=== PATIENT | male | born 1960 | race Caucasian/White ===

== ENCOUNTER 2017-06-04 08:32 | Inpatient (IN) | payer OTHER ==
[2017-06-04] VITALS (7 sets, daily range): BP systolic 134–174; BP diastolic 62–80; PULSE 81–101; RESP 16–18; TEMP 98.3; O2SAT 95–99
[~2017-06-04] VITALS: Ht 180.3 cm; Wt 120.0 kg
[~2017-06-04 08:32] MED LIST: CADU10TA PO; HUMALOG SQ; LANTUSP SQ; LISI10TA PO
[2017-06-04] MEDS ORDERED: LANTUS2P SQ (08:47)
[2017-06-04] MEDS ORDERED: HUMALOG SQ (08:47)
[2017-06-04] MEDS ORDERED: AMLO1TAB34 PO (08:47)
[2017-06-04] MEDS ORDERED: LISI10TA PO (08:47)
[2017-06-04] MEDS ORDERED: SODIUM CHLOR 0.9% 1000 ML INJ 1,000 ML IV ONE (08:49)
[2017-06-04] MEDS ORDERED: ONDANSETRON HCL 4 MG/2 ML VIAL IV PUSH ONE ×2 (09:00→11:09)
[2017-06-04] MEDS ORDERED: ceFAZolin 2 GM PREMIX 50 ML IV ONE (09:00)
[2017-06-04] MEDS ORDERED: TETANUS/DIPHTHERIA TOXOID ADULT 0.5 ML VIAL IM ONE (09:00)
[2017-06-04] MEDS ORDERED: HYDROmorphone HCL PF 1 MG/ML VIAL IV PUSH ONE (09:00)
[2017-06-04] MEDS ORDERED: SODIUM CHLORIDE 0.9% FLUSH 10 ML FLUSH IVF PRN (09:00)
[2017-06-04] MEDS ORDERED: ETOMIDATE 20 MG/10 ML VIAL IV PUSH ONE (09:15)
--- NOTE | 2017-06-04 09:20 | PD ---
HPI Chief Complaint: Musculoskeletal Complaint Time Seen by Provider: 08:49 Travel History International Travel<30 days: No Contact w/Intl Traveler<30days: No Traveled to known affect area: No History of Present Illness HPI Patient is a 57 year old male who presents to the ED via [facility] with open ankle fracture. He also has a tongue laceration. He awoke this morning in his home and noticed his ankle then called [facility]. He does not remember any events from last night including how he fell. He also cannot remember where he was in his home when he awoke this morning. He rates his ankle pain as 5/10. He states that he is a type 1 diabetic and has episodes of hypoglycemia but does not recall any syncopal episodes. He denies history of seizures or syncope. He denies illicit drug use or recent alcohol use. He denies any other injuries, headache, dizziness, shortness of breath, abdominal pain, back pain, cough, congestion, or rashes. Last tetanus vaccine greater than 5 years ago. Modifying Factors: None Associated Signs & Symptoms: Syncope, left open ankle fracture Risk Factors: Diabetic PFSH Past Medical History High Cholesterol: Yes Diabetes: Yes (TYPE I) Patient Takes Glucophage: No Diminished Hearing: No Hypertension: Yes Past Surgical History Surgical History: No Previous Surgery Social History Alcohol Use: Yes Tobacco Use: No Substance Use: No Allergies-Medications (Allergen,Severity, Reaction): Coded Allergies: No Known Allergies (Verified Allergy, Mild, 06/04/17) Reported Meds & Prescriptions Reported Meds & Active Scripts Active Reported Humalog Inj (Insulin Human Lispro) 1,000 Unit/10 Ml Vial 30 Units SQ PCHS Max dose at bedtime:( )units; sugars < 70,(0)units; sugars 150-199,(5)units; sugars 200-249,(10)units; sugars 250-299,(15)units; sugars 300-349,(20)units; sugars more than 349,(25)units. Lantus Inj (Insulin Glargine) 1,000 Unit/10 Ml Vial 50 Units SQ HS Amlodipine-Atorvastatin 10-10 Mg Tab 1 Tab PO DAILY Lisinopril-Hctz 10-12.5 Mg Tab 1 Tab PO DAILY Review of Systems Except as stated in HPI: all other systems reviewed are Neg Physical Exam Narrative GENERAL: Well-nourished well-developed middle age white male patient who is obese. Awake. Alert. Oriented 3. In mild distress distress. SKIN: Warm and dry. Dry Blood on chin, hands and legs bilaterally. HEAD: Atraumatic. Normocephalic. EYES: Pupils equal and round. No scleral icterus. No injection or drainage. Extraocular movements intact. ENT: No nasal bleeding or discharge. Mucous membranes pink and moist. Small laceration on left lateral tongue. No acute bleeding NECK: Trachea midline. No JVD. Full ROM. Supple. No midline C-spine tenderness. CARDIOVASCULAR: Regular rate and rhythm. Radial and dorsalis pedis pulses 2+ bilaterally. RESPIRATORY: No accessory muscle use. Clear to auscultation. Breath sounds equal bilaterally. GASTROINTESTINAL: Abdomen soft, non-tender, nondistended. Hepatic and splenic margins not palpable. MUSCULOSKELETAL: Extremities without clubbing, cyanosis, or edema. Open fracture of left medial ankle. Distal tibial exposed. Good dorsal pedis pulses. NEUROLOGICAL: Awake and alert. No obvious cranial nerve deficits. Motor grossly within normal limits. Five out of 5 muscle strength in the arms and legs. Normal speech. PSYCHIATRIC: Appropriate mood and affect; insight and judgment normal. Data Data Last Documented VS Vital Signs Date Time Temp Pulse Resp B/P (MAP) Pulse Ox O2 Delivery O2 Flow Rate FiO2 06/04/17 11:20 81 18 134/62 (86) 98 Room Air 06/04/17 09:20 3.00 Orders Orders Electrocardiogram (06/04/17 08:49) Complete Blood Count With Diff (06/04/17 08:49) Comprehensive Metabolic Panel (06/04/17 08:49) Ckmb (Isoenzyme) Profile (06/04/17 08:49) Troponin I (06/04/17 08:49) Act Partial Throm Time (Ptt) (06/04/17 08:49) Prothrombin Time / Inr (Pt) (06/04/17 08:49) Chest, Single Ap (06/04/17 08:49) Ct Brain W/O Iv Contrast(Rout) (06/04/17 08:49) Ecg Monitoring (06/04/17 08:49) Iv Access Insert/Monitor (06/04/17 08:49) Oximetry (06/04/17 08:49) Sodium Chloride 0.9% Flush (Ns Flush) (06/04/17 09:00) Sodium Chlor 0.9% 1000 Ml Inj (Ns 1000 M (06/04/17 08:49) Hydromorphone Pf Inj (Dilaudid Pf Inj) (06/04/17 09:00) Ondansetron Inj (Zofran Inj) (06/04/17 09:00) Tetanus/Diphtheria Tox Adult (Tetanus/Di (06/04/17 09:00) Cefazolin 2 Gm Premix (Ancef 2 Gm Premix (06/04/17 09:00) Etomidate Inj (Amidate Inj) (06/04/17 09:15) Ankle, Limited (Ap&Lat) (06/04/17 08:49) Ankle, Limited (Ap&Lat) (06/04/17 ) CKMB (06/04/17 08:50) CKMB% (06/04/17 08:50) Alcohol (Ethanol) (06/04/17 08:50) Fiberglass Short Leg Splint Ad (06/04/17 ) Fiberglass Sugartong Sp Ad Sl (06/04/17 ) Admit Order (Ed Use Only) (06/04/17 11:57) Consult Orthopedic (06/04/17 ) Labs Laboratory Tests Test 06/04/17 08:50 06/04/17 11:05 Blood Urea Nitrogen 17 MG/DL Creatinine 1.27 MG/DL Random Glucose 104 MG/DL Total Protein 7.4 GM/DL Albumin 3.0 GM/DL Calcium Level 8.8 MG/DL Alkaline Phosphatase 74 U/L Aspartate Amino Transf (AST/SGOT) 63 U/L Alanine Aminotransferase (ALT/SGPT) 32 U/L Total Bilirubin 0.4 MG/DL Sodium Level 143 MEQ/L Potassium Level 5.7 MEQ/L Chloride Level 113 MEQ/L Carbon Dioxide Level 19.2 MEQ/L Anion Gap 11 MEQ/L Estimat Glomerular Filtration Rate 59 ML/MIN Total Creatine Kinase 313 U/L Creatine Kinase MB 2.2 NG/ML Creatine Kinase MB % 0.7 % Troponin I LESS THAN 0.02 NG/ML Ethyl Alcohol Level LESS THAN 3 MG/DL White Blood Count 17.5 TH/MM3 Red Blood Count 4.74 MIL/MM3 Hemoglobin 14.2 GM/DL Hematocrit 43.4 % Mean Corpuscular Volume 91.6 FL Mean Corpuscular Hemoglobin 30.1 PG Mean Corpuscular Hemoglobin Concent 32.8 % Red Cell Distribution Width 14.3 % Platelet Count 206 TH/MM3 Mean Platelet Volume 10.2 FL Neutrophils (%) (Auto) 90.4 % Lymphocytes (%) (Auto) 4.9 % Monocytes (%) (Auto) 4.5 % Eosinophils (%) (Auto) 0.1 % Basophils (%) (Auto) 0.1 % Neutrophils # (Auto) 15.8 TH/MM3 Lymphocytes # (Auto) 0.8 TH/MM3 Monocytes # (Auto) 0.8 TH/MM3 Eosinophils # (Auto) 0.0 TH/MM3 Basophils # (Auto) 0.0 TH/MM3 CBC Comment DIFF FINAL Differential Comment Prothrombin Time 10.0 SEC Prothromb Time International Ratio 0.9 RATIO Activated Partial Thromboplast Time 21.8 SEC MDM Medical Decision Making Medical Screen Exam Complete: Yes Emergency Medical Condition: Yes Medical Record Reviewed: Yes Interpretation(s) Last [address] 06/04/17848 Signed Impressions: Service Date/Time: May 10:56 - CONCLUSION: 1. No evidence of acute intracranial process, hemorrhage, mass or edema. 2. Mucosal thickening with partial opacification in the left sphenoid sinus. Giuseppe Vargas MD Chest X-Ray 06/04/17848 Signed Impressions: Service Date/Time: May 09:14 - CONCLUSION: No acute cardiopulmonary abnormality is identified. Robin Baptiste MD Ankle X-Ray 06/04/17848 Signed Impressions: Service Date/Time: May 09:11 - CONCLUSION: Severe left ankle fracture/dislocation. Robin Farley MD Ankle X-Ray 06/04/17 0000 Signed Impressions: Service Date/Time: May 09:42 - CONCLUSION: Improved alignment following closed reduction and casting with intact ankle mortise. The distal fibular fracture remains displaced but significantly improved in alignment. Robin Baptiste MD Laboratory Tests Test 06/04/17 08:50 06/04/17 11:05 Albumin 3.0 GM/DL (3.4-5.0) Aspartate Amino Transf (AST/SGOT) 63 U/L (15-37) Potassium Level 5.7 MEQ/L (3.5-5.1) Chloride Level 113 MEQ/L (98-107) Carbon Dioxide Level 19.2 MEQ/L (21.0-32.0) Estimat Glomerular Filtration Rate 59 ML/MIN (>89) Total Creatine Kinase 313 U/L (39-308) Troponin I LESS THAN 0.02 NG/ML White Blood Count 17.5 TH/MM3 (4.0-11.0) Neutrophils (%) (Auto) 90.4 % (16.0-70.0) Lymphocytes (%) (Auto) 4.9 % (9.0-44.0) Neutrophils # (Auto) 15.8 TH/MM3 (1.8-7.7) Lymphocytes # (Auto) 0.8 TH/MM3 (1.0-4.8) Activated Partial Thromboplast Time 21.8 SEC (24.3-30.1) Differential Diagnosis Syncope, open ankle fracture: Vasovagal syncope versus hypoglycemic episode versus intracranial injuries versus metabolic issues versus dehydration Narrative Course Patient has an obvious open ankle fracture and IV Ancef and tetanus was updated. Patient was given Dilaudid and Zofran for pain. X-ray was done showing a fracture dislocation of the ankle. Conscious sedation was done and ankle was reduced. Case was discussed with Dr. Gibson of orthopedics who plans to take the patient to the OR, and by mouth, admitted to medicine. Case is discussed with Dr. Garcia for admission. Procedures Procedure Narrative After the risks and benefits were discussed the following procedure was performed: MODERATE SEDATION: The patient was placed on a telemetry monitor and pulse oximetry. An ambu bag and suction was immediately available at bedside. The patient was monitored by the nurse. Oxygen saturation, heart rate and blood pressure were monitored. Procedural sedation was acheived using 10 mg of etomidate. The patient was observed until awake and alert. Procedural Sedation time in attendance was 15 minutes. Left ankle was reduced with traction countertraction to anatomical position. Diagnosis Primary Impression: Open left ankle fracture Additional Impression: Syncope Admitting Information Admitting Physician Requests: Admit Tamara Booker MD Jun 04, 2017 09:20
[2017-06-04 09:27] LABS: ALT (GPT) 32 U/L (12-78)
--- NOTE | 2017-06-04 09:32 | RADRPT ---
EXAM DATE/TIME: 06/04/2017 09:11 [facility] COMPARISON: No previous studies available for comparison. INDICATIONS : Open fracture with deformity left ankle, fall. MEDICAL HISTORY : Diabetes mellitus type I. SURGICAL HISTORY : None. ENCOUNTER: Initial ACUITY: 1 day PAIN SCORE: 10/10 LOCATION: Left ankle. FINDINGS: There is a severely displaced left ankle fracture/dislocation with greater than one shaft width later al translocation of the hindfoot relative to the tibial plafond and period there is slight bayonet ap position. Oblique distal fibular fracture is displaced by roughly 2 shaft widths. CONCLUSION: Severe left ankle fracture/dislocation. Robin Farley MD on June 04, 2017 at 9:29 Board Certified Radiologist. This report was verified electronically.
[2017-06-04 09:37] LABS: ALKALINE PHOSPHATASE 74 U/L (45-117); ANION GAP 11 MEQ/L (5-15); AST (GOT) 63 U/L (15-37); BICARBONATE 19.2 MEQ/L (21.0-32.0); BLOOD UREA NITROGEN 17 MG/DL (7-18); CHLORIDE 113 MEQ/L (98-107); GLOMERULAR FILTRATION RATE 59 ML/MIN (>89); POTASSIUM 5.7 MEQ/L (3.5-5.1); SODIUM (NA) 143 MEQ/L (136-145); TOTAL BILIRUBIN ADULT 0.4 MG/DL (0.2-1.0)
[2017-06-04 09:38] LABS: CREATINE KINASE 313 U/L (39-308)
[2017-06-04 09:49] LABS: CKMB 2.2 NG/ML (0.5-3.6)
[2017-06-04 10:06] LABS: ALCOHOL LESS THAN 3 MG/DL (0-5)
--- NOTE | 2017-06-04 10:14 | RADRPT ---
EXAM DATE/TIME: 06/04/2017 09:42 [facility] COMPARISON: ANKLE LEFT LIMITED (AP&LAT), June 04, 2017, 9:11. INDICATIONS : Post reduction left ankle MEDICAL HISTORY : Diabetes mellitus type II. SURGICAL HISTORY : None. ENCOUNTER: Subsequent ACUITY: 1 day PAIN SCORE: 2/10 LOCATION: Left Ankle FINDINGS: AP and lateral views of the left ankle following reduction and casting a documents improved alignment with intact ankle mortise. The oblique fracture of the distal radial diaphysis remains displaced by approximately 7 mm. There is soft tissue swelling. There is also likely a minimally displaced fractur e of the posterior malleolus. No radiopaque foreign body is present. CONCLUSION: Improved alignment following closed reduction and casting with intact ankle mortise. The distal fibul ar fracture remains displaced but significantly improved in alignment. Robin Baptiste MD on June 04, 2017 at 10:00 Board Certified Radiologist. This report was verified electronically.
--- NOTE | 2017-06-04 10:15 | RADRPT ---
EXAM DATE/TIME: 06/04/2017 09:14 [facility] COMPARISON: No previous studies available for comparison. INDICATIONS : Evaluate for pneumonia, pneumothorax, communicable diseases. Pre-op open fracture left ankle. MEDICAL HISTORY : Diabetes mellitus type I. SURGICAL HISTORY : None. ENCOUNTER: Initial ACUITY: 1 day PAIN SCORE: 0/10 LOCATION: Bilateral chest FINDINGS: Portable AP view of the chest demonstrates a normal-sized cardiac silhouette. No effusion, consolidat ion, or pneumothorax is visualized. The bones and soft tissues demonstrate no acute abnormality. CONCLUSION: No acute cardiopulmonary abnormality is identified. Robin Baptiste MD on June 04, 2017 at 10:13 Board Certified Radiologist. This report was verified electronically.
[2017-06-04] MEDS ORDERED: NORMOSOL R INJ 1,000 ML IV ONE (11:09)
[2017-06-04] MEDS ORDERED: LIDOCAINE HCL 1% PF 5 ML AMPULE OTHER ONE (11:09)
[2017-06-04] MEDS ORDERED: SUCCINYLCHOLINE CHLORIDE 100 MG/5 ML SYRINGE IV PUSH ONE (11:09)
[2017-06-04] MEDS ORDERED: ceFAZolin INJ 1,000 MG VIAL IV ONE (11:09)
[2017-06-04] MEDS ORDERED: PROPOFOL 200 MG/20 ML AMP IV ONE (11:09)
--- NOTE | 2017-06-04 11:22 | RADRPT ---
EXAM DATE/TIME: 06/04/2017 10:56 [facility] COMPARISON: No previous studies available for comparison. INDICATIONS : Syncope, possible fall RADIATION DOSE: 41.58 CTDIvol (mGy) MEDICAL HISTORY : Hypertension. Diabetes mellitus type 1. SURGICAL HISTORY : None. ENCOUNTER: Initial ACUITY: 1 day PAIN SCALE: 0/10 LOCATION: cranial TECHNIQUE: Multiple contiguous axial images were obtained of the head. Using automated exposure control and adj ustment of the mA and/or kV according to patient size, radiation dose was kept as low as reasonably a chievable to obtain optimal diagnostic quality images. DICOM format image data is available electro nically for review and comparison. FINDINGS: CEREBRUM: The ventricles are normal for age. No evidence of midline shift, mass lesion, hemorrhage or acute in farction. No extra-axial fluid collections are seen. POSTERIOR FOSSA: The cerebellum and brainstem are intact. The 4th ventricle is midline. The cerebellopontine angle i s unremarkable. EXTRACRANIAL: Mucosal thickening with partial opacification is identified in the left sphenoid sinus. The visualize d portion of the orbits is intact. SKULL: The calvaria is intact. No evidence of skull fracture. CONCLUSION: 1. No evidence of acute intracranial process, hemorrhage, mass or edema. 2. Mucosal thickening with partial opacification in the left sphenoid sinus. Giuseppe Vargas MD on June 04, 2017 at 11:19 Board Certified Radiologist. This report was verified electronically.
[2017-06-04 11:26] LABS: AUTOMATED NEUTROPHIL # 15.8 TH/MM3 (1.8-7.7); BASOPHIL % 0.1 % (0.0-2.0); EOSINOPHIL % 0.1 % (0.0-4.0); HEMATOCRIT 43.4 % (39.0-51.0); HEMO FLAGS DIFF FINAL; LYMPH % 4.9 % (9.0-44.0); LYMPHOCYTE # 0.8 TH/MM3 (1.0-4.8); MEAN CELL VOLUME 91.6 FL (80.0-100.0); MEAN CORPUSCULAR HEMOGLOBIN 30.1 PG (27.0-34.0); MEAN CORPUSCULAR HGB CONC 32.8 % (32.0-36.0); MONO % 4.5 % (0.0-8.0); NEUT % 90.4 % (16.0-70.0); PLATELET COUNT 206 TH/MM3 (150-450); RED BLOOD COUNT 4.74 MIL/MM3 (4.50-5.90); RED CELL DISTRIBUTION WIDTH 14.3 % (11.6-17.2); WHITE BLOOD COUNT 17.5 TH/MM3 (4.0-11.0)
[2017-06-04 11:34] LABS: APTT (PATIENT) 21.8 SEC (24.3-30.1); INTERNATIONAL NORMALIZED RATIO 0.9 RATIO
[2017-06-04] MEDS ORDERED: INSU100C SQ (12:27)
[2017-06-04] MEDS ORDERED: [UNRECOGNIZED DRUG - CODE] (12:27)
[2017-06-04] MEDS ORDERED: LISI20TA (12:27)
[2017-06-04] MEDS ORDERED: SODIUM CHLOR 0.9% 1000 ML INJ 1,000 ML IV SCH (13:39)
--- NOTE | 2017-06-04 13:42 | EKG ---
Date Performed: 06/04/2017 Time Performed: 10:32:47 PTAGE: 57 years EKG: Sinus rhythm POSSIBLE LEFT ATRIAL ENLARGEMENT BORDERLINE ECG No significant change from prior electrocardiogram. PREVIOUS TRACING : 02/03/2008 19.40 DOCTOR: Salbador Mcfarlane Interpretating Date/Time 06/04/2017 13:42:10
[2017-06-04] MEDS ORDERED: GLUCAGON 1 MG/ML VIAL OTHER PRN (13:45)
[2017-06-04] MEDS ORDERED: NALOXONE HCL 0.4 MG/ML AMP IV PUSH PRN (13:45)
[2017-06-04] MEDS ORDERED: MORPHINE SULFATE 4 MG/ML INJ IV PUSH PRN ×2 (13:45)
[2017-06-04] MEDS ORDERED: ACETAMINOPHEN 325 MG TAB PO PRN (13:45)
[2017-06-04] MEDS ORDERED: BISACODYL 10 MG SUPP RECTAL PRN (13:45)
[2017-06-04] MEDS ORDERED: MAGNESIUM HYDROXIDE SUSP 30 ML CUP PO PRN (13:45)
[2017-06-04] MEDS ORDERED: SENNOSIDES 8.6 MG TAB PO PRN (13:45)
[2017-06-04] MEDS ORDERED: LACTULOSE SYRUP 20 GM/30 ML CUP PO PRN (13:45)
[2017-06-04] MEDS ORDERED: DEXTROSE 50% IN WATER 50 ML VIAL(D50) IV PUSH PRN (13:45)
[2017-06-04] MEDS ORDERED: ONDANSETRON HCL 4 MG/2 ML VIAL IVP PRN (13:45)
--- NOTE | 2017-06-04 14:04 | HHI.HP ---
[facility] Service [facility] Primary Care Physician Ashleigh Hernandez MD Admission Diagnosis syncope/open ankle fracture Diagnoses: (1) Open left ankle fracture Diagnosis: Principal (2) Hypertension (3) Hyperlipidemia (4) Type 1 diabetes mellitus Chief Complaint: Ankle fracture Travel History International Travel<30 Days: No Contact w/Intl Traveler <30 Da: No Traveled to Known Affected Are: No History of Present Illness The patient is a 57-year-old male who presented to the emergency department via ambulance with an open left ankle fracture. He states that he woke up this morning on the floor and noticed his ankle was injured. He does not remember falling. He last remembers going to bed and states that he felt fine yesterday. His glucose control has been good recently. He does not feel that he was hypoglycemic last night. He denies history of seizures or syncope. He feels a bit nauseous and lightheaded at this time, but did not last night or this morning. No chest pain or dyspnea. Review of Systems Constitutional: DENIES: Fever, Chills, Night Sweats Eyes: DENIES: Blurred vision, Vision loss Ears, nose, mouth, throat: DENIES: Hearing loss Respiratory: DENIES: Cough, Wheezing, Sputum production, Shortness of breath Cardiovascular: DENIES: Chest pain, Palpitations, Dyspnea on Exertion, Lower Extremity Edema Gastrointestinal: DENIES: Abdominal pain, Constipation, Diarrhea, Nausea, Vomiting Genitourinary: DENIES: Urinary frequency, Urinary incontinence, Urgency, Hematuria, Dysuria, Nocturia Musculoskeletal: COMPLAINS OF: Joint pain, DENIES: Muscle aches Integumentary: DENIES: Pruritus, Rash Hematologic/lymphatic: DENIES: Bruising Neurologic: DENIES: Headache Past Family Social History Past Medical History Diabetes mellitus type 1 Hypertension Hyperlipidemia Past Surgical History None Reported Medications Humalog Inj (Insulin Human Lispro) 1,000 Unit/10 Ml Vial 30 Units SQ PCHS Max dose at bedtime:( )units; sugars < 70,(0)units; sugars 150-199,(5)units; sugars 200-249,(10)units; sugars 250-299,(15)units; sugars 300-349,(20)units; sugars more than 349,(25)units. Lantus Inj (Insulin Glargine) 1,000 Unit/10 Ml Vial 50 Units SQ HS Amlodipine-Atorvastatin 10-10 Mg Tab 1 Tab PO DAILY Lisinopril-Hctz 10-12.5 Mg Tab 1 Tab PO DAILY Allergies: Coded Allergies: No Known Allergies (Verified Allergy, Mild, 06/04/17) Family History Denies significant family medical history Social History Occasional alcohol use, none yesterday or today. Occasionally smokes a cigar, most recently a few months ago. Denies illicit drug use. Physical Exam Vital Signs Vital Signs Date Time Temp Pulse Resp B/P (MAP) Pulse Ox O2 Delivery O2 Flow Rate FiO2 06/04/17 12:21 97 16 144/66 (92) 97 Room Air 06/04/17 11:20 81 18 134/62 (86) 98 Room Air 06/04/17 09:20 99 3.00 06/04/17 08:43 96 18 161/72 (101) 97 Room Air 06/04/17 08:39 101 18 161/72 (101) 96 Physical Exam GENERAL: Obese male in no acute distress. HEENT: Normocephalic, atraumatic. Pupils equal, round and reactive. Extraocular movements intact. No scleral icterus. No injection or drainage. Oropharynx is clear. Mucous membranes are moist. CARDIOVASCULAR: Regular rate and rhythm without murmurs, gallops, or rubs. RESPIRATORY: Clear to auscultation. No wheezes, rales, or rhonchi. Breathing is non-labored. GASTROINTESTINAL: Abdomen soft, non-tender, nondistended. EXTREMITIES: No right lower extremity edema. Left lower leg in a splint. PSYCH: Alert and oriented x 3. Laboratory Laboratory Tests Test 06/04/17 08:50 06/04/17 11:05 Blood Urea Nitrogen 17 Creatinine 1.27 Random Glucose 104 Total Protein 7.4 Albumin 3.0 Calcium Level 8.8 Alkaline Phosphatase 74 Aspartate Amino Transf (AST/SGOT) 63 Alanine Aminotransferase (ALT/SGPT) 32 Total Bilirubin 0.4 Sodium Level 143 Potassium Level 5.7 Chloride Level 113 Carbon Dioxide Level 19.2 Anion Gap 11 Estimat Glomerular Filtration Rate 59 Total Creatine Kinase 313 Creatine Kinase MB 2.2 Creatine Kinase MB % 0.7 Troponin I LESS THAN 0.02 Ethyl Alcohol Level LESS THAN 3 White Blood Count 17.5 Red Blood Count 4.74 Hemoglobin 14.2 Hematocrit 43.4 Mean Corpuscular Volume 91.6 Mean Corpuscular Hemoglobin 30.1 Mean Corpuscular Hemoglobin Concent 32.8 Red Cell Distribution Width 14.3 Platelet Count 206 Mean Platelet Volume 10.2 Neutrophils (%) (Auto) 90.4 Lymphocytes (%) (Auto) 4.9 Monocytes (%) (Auto) 4.5 Eosinophils (%) (Auto) 0.1 Basophils (%) (Auto) 0.1 Neutrophils # (Auto) 15.8 Lymphocytes # (Auto) 0.8 Monocytes # (Auto) 0.8 Eosinophils # (Auto) 0.0 Basophils # (Auto) 0.0 CBC Comment DIFF FINAL Differential Comment Prothrombin Time 10.0 Prothromb Time International Ratio 0.9 Activated Partial Thromboplast Time 21.8 Result Diagram: 06/04/17 1105 06/04/1750 Imaging Last Impressions Head CT 06/04/17848 Signed Impressions: Service Date/Time: May 10:56 - CONCLUSION: 1. No evidence of acute intracranial process, hemorrhage, mass or edema. 2. Mucosal thickening with partial opacification in the left sphenoid sinus. Giuseppe Vargas MD Chest X-Ray 06/04/17848 Signed Impressions: Service Date/Time: May 09:14 - CONCLUSION: No acute cardiopulmonary abnormality is identified. Robin Baptiste MD Ankle X-Ray 06/04/17848 Signed Impressions: Service Date/Time: May 09:11 - CONCLUSION: Severe left ankle fracture/dislocation. Robin Farley MD Caprini VTE Risk Assessment Caprini VTE Risk Assessment: Mod/High Risk (score >= 2) VTE Pharm Contraindication: Hemorrhage VTE [facility] Contraindication: LE injury/wound Caprini Risk Assessment Model Point Value = 1 Point Value = 2 Point Value = 3 Point Value = 5 Age 41-60 Minor surgery BMI > 25 kg/m2 Swollen legs Varicose veins or History of unexplained or recurrent spontaneous Oral contraceptives or hormone replacement Sepsis (< 1 month) Serious lung disease, including pneumonia (< 1 month) Abnormal pulmonary function Acute myocardial infarction Congestive heart failure (< 1 month) History of inflammatory bowel disease Medical patient at bed rest Age 61-74 Arthroscopic surgery Major open surgery (> 45 min) Laparoscopic surgery (> 45 min) Malignancy Confined to bed (> 72 hours) Immobilizing plaster cast Central venous access Age >= 75 History of VTE Family history of VTE Factor V Leiden Prothrombin [id number] Lupus anticoagulant Anticardiolipin antibodies Elevated serum homocysteine Heparin-induced thrombocytopenia Other congenital or acquired thrombophilia Stroke (< 1 month) Elective arthroplasty Hip, pelvis, or leg fracture Acute spinal cord injury (< 1 month) Prophylaxis Regimen Total Risk Factor Score Risk Level Prophylaxis Regimen 0-1 Low Early ambulation 2 Moderate Order ONE of the following: *Sequential Compression Device (SCD) *Heparin 5000 units SQ BID 3-4 Higher Order ONE of the following medications: *Heparin 5000 units SQ TID *Enoxaparin/Lovenox 40 mg SQ daily (WT < 150 kg, CrCl > 30 mL/min) *Enoxaparin/Lovenox 30 mg SQ daily (WT < 150 kg, CrCl > 10-29 mL/min) *Enoxaparin/Lovenox 30 mg SQ BID (WT < 150 kg, CrCl > 30 mL/min) AND/OR *Sequential Compression Device (SCD) 5 or more Highest Order ONE of the following medications: *Heparin 5000 units SQ TID (Preferred with Epidurals) *Enoxaparin/Lovenox 40 mg SQ daily (WT < 150 kg, CrCl > 30 mL/min) *Enoxaparin/Lovenox 30 mg SQ daily (WT < 150 kg, CrCl > 10-29 mL/min) *Enoxaparin/Lovenox 30 mg SQ BID (WT < 150 kg, CrCl > 30 mL/min) AND *Sequential Compression Device (SCD) Assessment and Plan Assessment and Plan 1. Open fracture of the left ankle: Orthopedic surgery consult. Continue pain control. 2. Type 1 diabetes mellitus: Monitor Accu-Cheks and cover with sliding scale insulin. Patient is nothing by mouth for surgery. Resume Lantus postoperatively. 3. Hypertension: Continue home medications. 4. Hyperlipidemia: Not currently on statin. 5. DVT prophylaxis: Avoid chemical prophylaxis in anticipation of surgery. Right lower extremity SCD, NEVIN fisher. Mechanical prophylaxis culture indicated on the left lower extremity secondary to injury. Ian Garcia MD Jun 04, 2017 14:03
[2017-06-04] MEDS: ACETAMINOPHEN 325 MG TAB PO PRN ×2 (15:59→20:45)
[2017-06-04] MEDS: INSULIN ASPART SUPPLEMENTAL SCALE SQ SCH ×2 (17:00→19:54)
[2017-06-04] MEDS ORDERED: METOPROLOL TARTRATE 25 MG TAB PO PRN (20:45)
[2017-06-04] MEDS ORDERED: LACTATED RINGER'S 1000 ML IV PRN (20:45)
[2017-06-04] MEDS ORDERED: INSULIN HUMAN REGULAR 1,000 UNITS/10 ML VIAL SQ PRN (20:45)
[2017-06-04] MEDS ORDERED: CHLORHEXIDINE GLUCONATE 2 % 1 PACK (2 CLOTHS) TOPICAL PRN (20:45)
[2017-06-04] MEDS ORDERED: POVIDONE IODINE 5% (ANTISEPSIS KIT) 4 APPLICATIONS EACH NARE PRN (20:45)
[2017-06-04] MEDS ORDERED: SODIUM CHLORID 0.9% 500 ML IV PRN (20:45)
--- NOTE | 2017-06-04 22:32 | PD.CONS ---
cc: Dayton Gibson MD HPI Service Orthopedic Surgeons Consult Requested By ER staff Reason for Consult Open fracture dislocation left ankle Primary Care Physician Ashleigh Hernandez MD Admission Diagnosis syncope/open ankle fracture Diagnoses: (1) Open left ankle fracture Diagnosis: Principal (2) Hypertension (3) Hyperlipidemia (4) Type 1 diabetes mellitus Chief Complaint: Left ankle pain History of Present Illness This 57 old male with a history of type 2 diabetes has no recollection of injuring his left lower extremity. The patient states he woke up and noted a deformity of his ankle with an associated wound. He contacted 911 and was transported to [facility]. X-rays revealed a fracture of the distal fibula with a dislocation of the ankle joint laterally. There was a wound over the medial aspect consistent with open fracture. He was admitted to the medical service with orthopedic consultation requested. Patient denies any other extremity complaints at the present time. The patient denies any history of seizures. He states his blood sugar has been under roughly good control and has no explanation for his loss of consciousness. The patient did undergo a closed reduction by the emergency room staff with splinting. Review of Systems Reviewed and well outlined in the medical record Past Family Social History Past Medical History Diabetes mellitus type 1 Hypertension Hyperlipidemia Past Surgical History None Reported Medications Reported Medications Humalog Inj (Insulin Human Lispro) 1,000 Unit/10 Ml Vial 30 Units SQ PCHS Max dose at bedtime:( )units; sugars < 70,(0)units; sugars 150-199,(5)units; sugars 200-249,(10)units; sugars 250-299,(15)units; sugars 300-349,(20)units; sugars more than 349,(25)units. Lantus Inj (Insulin Glargine) 1,000 Unit/10 Ml Vial 50 Units SQ HS Amlodipine-Atorvastatin 10-10 Mg Tab 1 Tab PO DAILY Lisinopril-Hctz 10-12.5 Mg Tab 1 Tab PO DAILY Allergies: Coded Allergies: No Known Allergies (Verified Allergy, Mild, 06/04/17) Active Ordered Medications Current Medications Medications (Trade) Dose Ordered Sig/Sami Route Start Time Stop Time Status Last Admin (NS Flush) 2 ml UNSCH PRN IVF 06/04/17 09:00 Sodium Chloride 1,000 ml @ 100 mls/hr Q10H IV 06/04/17 13:39 (Tylenol) 650 mg Q4H PRN PO 06/04/17 13:45 (Zofran Inj) 4 mg Q6H PRN IVP 06/04/17 13:45 06/04/17 19:46 (Tylenol) 650 mg Q6H PRN PO 06/04/17 13:45 06/04/17 20:45 (Morphine Inj) 2 mg Q3H PRN IV PUSH 06/04/17 13:45 (Morphine Inj) 4 mg Q3H PRN IV PUSH 06/04/17 13:45 06/04/17 19:42 (Narcan Inj) 0.4 mg UNSCH PRN IV PUSH 06/04/17 13:45 (Milk Of Magnesia Liq) 30 ml Q12H PRN PO 06/04/17 13:45 (Senokot) 17.2 mg Q12H PRN PO 06/04/17 13:45 (Dulcolax Supp) 10 mg DAILY PRN RECTAL 06/04/17 13:45 (Lactulose Liq) 30 ml DAILY PRN PO 06/04/17 13:45 (D50w (Vial) Inj) 50 ml UNSCH PRN IV PUSH 06/04/17 13:45 (Glucagon Inj) 1 mg UNSCH PRN OTHER 06/04/17 13:45 (NovoLOG SUPPLEMENTAL SCALE) 1 ACHS SLIDING SCALE SQ 06/04/17 17:00 06/04/17 19:54 Lactated Ringer's 1,000 ml @ 30 mls/hr Q24H PRN IV 06/04/17 20:45 06/07/17 20:44 Sodium Chloride 500 ml @ 30 mls/hr [id number] PRN IV 06/04/17 20:45 06/07/17 20:44 (Lopressor) 25 mg BICYCLE MESSENGER PRN PO 06/04/17 20:45 06/07/17 20:44 (Betadine 5% Antisepsis Kit) 1 applic BICYCLE MESSENGER PRN EACH NARE 06/04/17 20:45 06/07/17 20:44 (Chlorhexidine 2% Cloth) 3 pack BICYCLE MESSENGER PRN TOPICAL 06/04/17 20:45 06/07/17 20:44 (NovoLIN R INJ) See Protocol Table ... BICYCLE MESSENGER PRN SQ 06/04/17 20:45 06/07/17 20:44 Reported Meds & Active Scripts Active Reported Humalog (Insulin Lispro) 100 Unit/Ml Cartridge 30 SQ PCHS Amlodipine-Atorvast 5-10 mg (Amlodipine/Atorvastatin) 5 Mg-10 Mg Tablet 10 Lisinopril-Hctz 20-12.5 mg Tab (Lisinopril/Hydrochlorothiazide) 20 Mg-12.5 Mg Tablet Lantus Inj (Insulin Glargine) 1,000 Unit/10 Ml Vial 50 Units SQ HS Family History Denies significant family medical history Social History Occasional alcohol use, none yesterday or today. Occasionally smokes a cigar, most recently a few months ago. Denies illicit drug use. Physical Exam Vital Signs Vital Signs Date Time Temp Pulse Resp B/P (MAP) Pulse Ox O2 Delivery O2 Flow Rate FiO2 06/04/17 21:45 17 06/04/17 19:55 18 06/04/17 19:04 98.3 95 18 152/80 (104) 95 06/04/17 18:39 06/04/17 15:59 81 16 174/74 (107) 97 Room Air 06/04/17 12:21 97 16 144/66 (92) 97 Room Air 06/04/17 11:20 81 18 134/62 (86) 98 Room Air 06/04/17 09:20 99 3.00 06/04/17 08:43 96 18 161/72 (101) 97 Room Air 06/04/17 08:39 101 18 161/72 (101) 96 Physical Exam The left lower extremity currently is splinted. This was left intact for further evaluation in the operating room setting. The patient is awake alert and answers questions appropriately. His pain currently is well controlled. He has no other extremity complaint. He does move his toes freely and has good capillary refill and sensation. Laboratory Laboratory Tests Test 06/04/17 08:50 06/04/17 11:05 Blood Urea Nitrogen 17 Creatinine 1.27 Random Glucose 104 Total Protein 7.4 Albumin 3.0 Calcium Level 8.8 Alkaline Phosphatase 74 Aspartate Amino Transf (AST/SGOT) 63 Alanine Aminotransferase (ALT/SGPT) 32 Total Bilirubin 0.4 Sodium Level 143 Potassium Level 5.7 Chloride Level 113 Carbon Dioxide Level 19.2 Anion Gap 11 Estimat Glomerular Filtration Rate 59 Total Creatine Kinase 313 Creatine Kinase MB 2.2 Creatine Kinase MB % 0.7 Troponin I LESS THAN 0.02 Ethyl Alcohol Level LESS THAN 3 White Blood Count 17.5 Red Blood Count 4.74 Hemoglobin 14.2 Hematocrit 43.4 Mean Corpuscular Volume 91.6 Mean Corpuscular Hemoglobin 30.1 Mean Corpuscular Hemoglobin Concent 32.8 Red Cell Distribution Width 14.3 Platelet Count 206 Mean Platelet Volume 10.2 Neutrophils (%) (Auto) 90.4 Lymphocytes (%) (Auto) 4.9 Monocytes (%) (Auto) 4.5 Eosinophils (%) (Auto) 0.1 Basophils (%) (Auto) 0.1 Neutrophils # (Auto) 15.8 Lymphocytes # (Auto) 0.8 Monocytes # (Auto) 0.8 Eosinophils # (Auto) 0.0 Basophils # (Auto) 0.0 CBC Comment DIFF FINAL Differential Comment Prothrombin Time 10.0 Prothromb Time International Ratio 0.9 Activated Partial Thromboplast Time 21.8 Result Diagram: 06/04/17 1105 06/04/1750 Imaging Last [address] 06/04/17848 Signed Impressions: Service Date/Time: May 10:56 - CONCLUSION: 1. No evidence of acute intracranial process, hemorrhage, mass or edema. 2. Mucosal thickening with partial opacification in the left sphenoid sinus. Giuseppe Vargas MD Chest X-Ray 06/04/17848 Signed Impressions: Service Date/Time: May 09:14 - CONCLUSION: No acute cardiopulmonary abnormality is identified. Robin Baptiste MD Ankle X-Ray 06/04/17848 Signed Impressions: Service Date/Time: May 09:11 - CONCLUSION: Severe left ankle fracture/dislocation. Robin Farley MD Ankle X-Ray 06/04/17 0000 Signed Impressions: Service Date/Time: May 09:42 - CONCLUSION: Improved alignment following closed reduction and casting with intact ankle mortise. The distal fibular fracture remains displaced but significantly improved in alignment. Robin Baptiste MD Assessment & Plan Problem List: (1) Open fracture dislocation of ankle ICD Codes: S82.899B - Other fracture of unspecified lower leg, initial encounter for open fracture type I or II (2) Hyperlipidemia ICD Codes: E78.5 - Hyperlipidemia, unspecified (3) Hypertension ICD Codes: I10 - Essential (primary) hypertension (4) Type 1 diabetes mellitus ICD Codes: E10.9 - Type 1 diabetes mellitus without complications Assessment and Plan The findings were discussed. Recommendations are given for irrigation and debridement of the open injury with internal fixation of the fibula for stabilization. The nature of the procedure, the risks, expected benefits, as well as the postoperative expectations were discussed with him in detail. In addition, the alternatives to treatment and risks of same were discussed. The patient acknowledges full understanding and consents to it. Dayton Gibson MD Jun 04, 2017 22:32
[2017-06-04] MEDS ORDERED: GENTAMICIN SULFATE 80 MG/2 ML VIAL ONE (22:43)
[2017-06-04] MEDS ORDERED: ACETAMINOPHEN 1000 MG/100 ML 100 ML IV ONE (23:23)
[2017-06-04] MEDS ORDERED: ceFAZolin INJ 1,000 MG VIAL IRRIGATION ONE (23:48)
[2017-06-05] VITALS (7 sets, daily range): BP systolic 122–155; BP diastolic 68–84; PULSE 64–101; RESP 18–20; TEMP 97.6–100.1; O2SAT 95–100
--- NOTE | 2017-06-05 00:36 | PD.OP ---
cc: Dayton Gibson MD Operative Report Date of Surgery: Jun 04, 2017 Preoperative Diagnosis: (1) Open fracture dislocation of ankle Postoperative Diagnosis: (1) Open fracture dislocation of ankle Procedure: Irrigation and debridement with ORIF lateral malleolus left ankle Implants: Synthes Anesthesia: Gen. Surgeon: Dayton Gibson Distribution Lineman(s): OR staff Operation and Findings: Indications: This 57 old male injured his left ankle by an unknown mechanism. The patient states he woke up on the floor this morning with a deformity of his ankle. He was also noted to have a laceration. He presented to [facility]. X-rays revealed a fracture dislocation of the ankle with lateral and posterior malleolus fractures. He underwent closed reduction in the emergency room. He had a large laceration over the medial aspect consistent with an open fracture. He is therefore taken to surgery for irrigation and debridement with internal fixation. Procedure and findings: The patient was taken to the operative suite and after undergoing an adequate level of general anesthesia was kept supine on the operating table. Preoperative antibiotics consisted of Ancef 2 g IV. The left lower extremity splint was removed. The patient had a 7 cm transverse laceration over the medial malleolus which was exposed. The joint was unstable. It was then prepped and draped in the usual sterile fashion with alcohol and Hibiclens. Attention was first focused on the medial aspect of the ankle. Soft tissue edges were debrided sharply with scissors. There was a stump of deltoid ligament attached to the medial malleolus which was also excised. The wound was thoroughly irrigated with antibiotic irrigant. The remaining posterior medial capsule and part of the deltoid ligament were then reattached to the medial malleolus with suture. The skin was closed with 3-0 nylon loosely. Attention was then focused on the lateral aspect of the ankle. A longitudinal incision was made extending from the tip of the lateral malleolus. This was carried down through skin and subcutaneous tense tissue with a knife. Muscular fascia was incised and split longitudinally. The fracture site was identified. It was exposed and debrided of all fracture hematoma and soft tissue from the fracture site. Fracture was then reduced and held with reduction clamps. 2 lag screws were placed from anterior to posterior at 90 to the fracture. This gave good fixation. A Synthes locking plate was then applied to the lateral aspect of the distal fibula. Proximal cortical fixation was accomplished after drilling. Distal locking screws were then placed. The position of the fracture reduction and placement of the internal fixation with an checked in both the AP and lateral planes with the C- arm. With the foot in neutral dorsiflexion the posterior malleolar fragment was in satisfactory alignment. The lateral wound was then thoroughly irrigated. It was closed in layers utilizing 0 Vicryl suture and the muscular fascia, 2-0 Vicryl suture and the subcutaneous tense tissue and cory on the skin. Sterile dressings were applied, the patient was placed into a splint, awakened, transferred to the hospital bed and taken to the recovery room in stable condition. Estimated blood loss: Less than 50 cc Complications: None Dayton Gibson MD Jun 05, 2017 00:36
[2017-06-05] MEDS ORDERED: MORPHINE SULFATE 8 MG/ML INJ IV PUSH PRN (00:45)
[2017-06-05] MEDS ORDERED: LACTULOSE SYRUP 20 GM/30 ML CUP PO PRN (00:45)
[2017-06-05] MEDS ORDERED: ONDANSETRON HCL 4 MG/2 ML VIAL IVP PRN (00:45)
[2017-06-05] MEDS ORDERED: ACETAMINOPHEN 325 MG TAB PO PRN (00:45)
[2017-06-05] MEDS ORDERED: SENNOSIDES 8.6 MG TAB PO PRN (00:45)
[2017-06-05] MEDS ORDERED: BISACODYL 10 MG SUPP RECTAL PRN (00:45)
[2017-06-05] MEDS ORDERED: MAGNESIUM HYDROXIDE SUSP 30 ML CUP PO PRN (00:45)
[2017-06-05] MEDS ORDERED: TEMAZEPAM 15 MG CAP PO PRN (00:45)
[2017-06-05] MEDS ORDERED: Post-op Orders (for Pharmacy) MISC XX ONE (00:45)
[2017-06-05] MEDS ORDERED: SODIUM CHLORIDE 0.9% FLUSH 10 ML FLUSH IV FLUSH PRN (00:45)
[2017-06-05] MEDS ORDERED: MISCELLANEOUS PHARMACY INFORMATION XX ONE (00:45)
[2017-06-05] MEDS ORDERED: MORPHINE SULFATE 30 MG/30 ML PCA IV SCH (00:45)
[2017-06-05] MEDS ORDERED: NALOXONE HCL 0.4 MG/ML AMP IV PUSH PRN (00:45)
[2017-06-05] MEDS ORDERED: DO NOT ADM ANY ANTICOAGULANT DRUGS PRN (00:50)
[2017-06-05] MEDS ORDERED: *morphine SULFATE 8 MG/ML PERIprocedure ONLY ONE ×2 (01:06→01:33)
[2017-06-05] MEDS ORDERED: *ONDANSETRON 4 MG VIAL PERIprocedural Use ONLY ONE (01:11)
[2017-06-05] MEDS: LACTATED RINGER'S 1000 ML INJ 1,000 ML IV SCH ×2 (01:15→13:06)
--- NOTE | 2017-06-05 01:33 | RADRPT ---
EXAM DATE/TIME: 06/05/2017 00:09 [place] COMPARISON: ANKLE LEFT LIMITED (AP&LAT), June 04, 2017, 9:42. INDICATIONS : ORIF LEFT ANKLE. MEDICAL HISTORY : None. SURGICAL HISTORY : None. ENCOUNTER: Initial ACUITY: 1 day PAIN SCORE: Non-responsive. LOCATION: Left ankle FINDINGS: There are postsurgical changes with operative reduction and internal fixation of the previously seen fracture. The alignment is anatomic. CONCLUSION: Postsurgical changes as above. Darwin Quiroz MD on June 05, 2017 at 1:31 Board Certified Radiologist. This report was verified electronically.
[2017-06-05] MEDS: INSULIN ASPART SUPPLEMENTAL SCALE SQ SCH ×4 (04:46→19:51)
[2017-06-05] MEDS: ceFAZolin 2 GM PREMIX 50 ML IV SCH ×3 (04:46→17:47)
[2017-06-05] MEDS: PCA - TOTAL MG MORPHINE DELIVERED PER SHIFT SCH ×3 (05:50→19:53)
[2017-06-05] MEDS: DOCUSATE SODIUM 50 MG/SENNA 8.6 MG TAB PO SCH ×2 (08:26→19:51)
[2017-06-05] MEDS: SODIUM CHLORIDE 0.9% FLUSH 10 ML FLUSH IV FLUSH SCH ×2 (08:26→19:52)
[2017-06-05] MEDS: oxyCODONE/ACETAMINOPHEN 5 MG/325 MG TAB PO PRN ×4 (08:47→22:20)
[2017-06-05] MEDS ORDERED: INSULIN ASPART 1,000 UNITS/10 ML VIAL SQ ONE (09:15)
[2017-06-05] MEDS ORDERED: DEXTROSE 50% IN WATER 50 ML VIAL(D50) IV PUSH PRN (09:15)
[2017-06-05] MEDS ORDERED: GLUCAGON 1 MG/ML VIAL OTHER PRN (09:15)
--- NOTE | 2017-06-05 09:15 | HHI.PR ---
Subjective Remarks Follow up ankle fracture, fall. Patient still does not remember how he injured his ankle. He thinks he may have tripped on a platform in his bedroom when getting out of bed. Pain is better today. He states that the morphine makes him feel sick. No chest pain or dyspnea. Nausea and vomiting associated with pain medication. Objective Vitals Vital Signs Date Time Temp Pulse Resp B/P (MAP) Pulse Ox O2 Delivery O2 Flow Rate FiO2 06/05/17 07:45 100.1 101 20 154/84 (107) 96 06/05/17 05:50 17 06/05/17 03:45 Nasal Cannula 2.00 06/05/17 03:00 98.6 64 19 122/68 (86) 95 06/05/17 02:15 98.6 93 17 135/63 (87) 94 Nasal Cannula 2 06/05/17 02:00 89 16 140/63 (88) 93 Nasal Cannula 2 06/05/17 01:45 91 17 166/74 (104) 94 Nasal Cannula 2 06/05/17 01:30 89 17 166/72 (103) 97 Nasal Cannula 2 06/05/17 01:15 92 19 176/83 (114) 98 Nasal Cannula 2 06/05/17 01:00 87 18 166/80 (108) 96 Simple Mask 10 06/05/17 00:50 99.6 93 13 183/80 (114) 95 Simple Mask 10 06/04/17 21:45 17 06/04/17 19:55 18 06/04/17 19:04 98.3 95 18 152/80 (104) 95 06/04/17 18:39 06/04/17 15:59 81 16 174/74 (107) 97 Room Air 06/04/17 12:21 97 16 144/66 (92) 97 Room Air 06/04/17 11:20 81 18 134/62 (86) 98 Room Air 06/04/17 09:20 99 3.00 I/O 06/04/17 06/04/17 06/04/17 06/05/17 06/05/17 06/05/17 07:00 15:00 23:00 07:00 15:00 23:00 Intake Total 1050 ml 0 ml 1480 ml Output Total 550 ml Balance 1050 ml 0 ml 930 ml Intake Oral 0 ml 480 ml IV Total 1050 ml 1000 ml Output Urine Total 500 ml Estimated Blood Loss 50 ml # Voids 0 # Bowel Movements 0 0 Result Diagram: 06/04/17 1105 06/04/17 0850 Imaging Last Impressions Ankle X-Ray 06/05/17 0000 Signed Impressions: Service Date/Time: Monday, June 05, 2017 00:09 - CONCLUSION: Postsurgical changes as above. Darwin Quiroz MD Head CT 06/04/17 0849 Signed Impressions: Service Date/Time: May 10:56 - CONCLUSION: 1. No evidence of acute intracranial process, hemorrhage, mass or edema. 2. Mucosal thickening with partial opacification in the left sphenoid sinus. Giuseppe Vargas MD Chest X-Ray 06/04/1749 Signed Impressions: Service Date/Time: May 09:14 - CONCLUSION: No acute cardiopulmonary abnormality is identified. Robin Baptiste MD Objective Remarks General: Obese male in no acute distress. Heart: Regular rate and rhythm. No murmur. Lungs: Clear to auscultation bilaterally. No wheezes, rales, or rhonchi. Breathing is nonlabored. Abdomen: Soft, nontender, nondistended. Extremities: No lower extremity edema. Left ankle in a splint. Psych: Alert and oriented. Procedures 06/04/17 ORIF left ankle fracture Urinary Catheter: No Vascular Central Line Catheter: No A/P Problem List: (1) Open left ankle fracture ICD Code: S82.892B - Other fracture of left lower leg, initial encounter for open fracture type I or II Status: Acute (2) Hypertension ICD Code: I10 - Essential (primary) hypertension (3) Hyperlipidemia ICD Code: E78.5 - Hyperlipidemia, unspecified (4) Type 1 diabetes mellitus ICD Code: E10.9 - Type 1 diabetes mellitus without complications Assessment and Plan 1. Open fracture of the left ankle: Status post ORIF. Appreciate with peak surgery management. Continue pain control, bowel regimen. 2. Type 1 diabetes mellitus: Monitor Accu-Cheks and cover with sliding scale insulin. Increased to medium sliding scale. Continue Lantus. Diabetic diet. 3. Hypertension: Resume HCTZ, amlodipine. Lisinopril on hold secondary to borderline hyperkalemia. Labs are pending today. 4. Hyperlipidemia: Continue statin. 5. DVT prophylaxis: Right lower extremity SCD, NEVIN fryee. Mechanical prophylaxis culture indicated on the left lower extremity secondary to injury. Chemical prophylaxis per orthopedic surgery. Ian Garcia MD Jun 05, 2017 09:15
[2017-06-05 10:13] LABS: AUTOMATED NEUTROPHIL # 8.3 TH/MM3 (1.8-7.7); BASOPHIL # 0.1 TH/MM3 (0-0.2); BASOPHIL % 0.6 % (0.0-2.0); EOSINOPHIL % 0.1 % (0.0-4.0); HEMATOCRIT 36.1 % (39.0-51.0); HEMO FLAGS DIFF FINAL; LYMPH % 12.3 % (9.0-44.0); LYMPHOCYTE # 1.4 TH/MM3 (1.0-4.8); MEAN CELL VOLUME 92.4 FL (80.0-100.0); MEAN CORPUSCULAR HEMOGLOBIN 30.6 PG (27.0-34.0); MEAN CORPUSCULAR HGB CONC 33.1 % (32.0-36.0); MONO % 12.7 % (0.0-8.0); NEUT % 74.3 % (16.0-70.0); PLATELET COUNT 158 TH/MM3 (150-450); RED BLOOD COUNT 3.91 MIL/MM3 (4.50-5.90); RED CELL DISTRIBUTION WIDTH 14.3 % (11.6-17.2); WHITE BLOOD COUNT 11.2 TH/MM3 (4.0-11.0)
[2017-06-05 11:02] LABS: BICARBONATE 23.6 MEQ/L (21.0-32.0); POTASSIUM 4.3 MEQ/L (3.5-5.1)
[2017-06-05] MEDS: RIVAROXABAN 10 MG TAB PO SCH (11:52)
[2017-06-05] MEDS: ATORVASTATIN 10 MG TAB PO SCH (11:52)
[2017-06-05] MEDS: HYDROCHLOROTHIAZIDE 12.5 MG CAP PO SCH (11:52)
--- NOTE | 2017-06-05 12:38 | PD.ORT.PN ---
Subjective Post Op Day #: 1 Pain Scale: 2 Subjective Remarks The patient is awake and alert and answers questions appropriately. He is having minimal discomfort. He has no other specific complaint. Objective Vitals Vital Signs Date Time Temp Pulse Resp B/P (MAP) Pulse Ox O2 Delivery O2 Flow Rate FiO2 06/05/17 12:00 100.0 98 20 155/82 (106) 100 06/05/17 09:09 96 Nasal Cannula 2.00 06/05/17 07:45 100.1 101 20 154/84 (107) 96 06/05/17 05:50 17 06/05/17 03:45 Nasal Cannula 2.00 06/05/17 03:00 98.6 64 19 122/68 (86) 95 06/05/17 02:15 98.6 93 17 135/63 (87) 94 Nasal Cannula 2 06/05/17 02:00 89 16 140/63 (88) 93 Nasal Cannula 2 06/05/17 01:45 91 17 166/74 (104) 94 Nasal Cannula 2 06/05/17 01:30 89 17 166/72 (103) 97 Nasal Cannula 2 06/05/17 01:15 92 19 176/83 (114) 98 Nasal Cannula 2 06/05/17 01:00 87 18 166/80 (108) 96 Simple Mask 10 06/05/17 00:50 99.6 93 13 183/80 (114) 95 Simple Mask 10 06/04/17 21:45 17 06/04/17 19:55 18 06/04/17 19:04 98.3 95 18 152/80 (104) 95 06/04/17 18:39 06/04/17 15:59 81 16 174/74 (107) 97 Room Air I/O 06/04/17 06/04/17 06/04/17 06/05/17 06/05/17 06/05/17 07:00 15:00 23:00 07:00 15:00 23:00 Intake Total 1050 ml 0 ml 1480 ml Output Total 550 ml Balance 1050 ml 0 ml 930 ml Intake Oral 0 ml 480 ml IV Total 1050 ml 1000 ml Output Urine Total 500 ml Estimated Blood Loss 50 ml # Voids 0 # Bowel Movements 0 0 Result Diagram: 06/05/1742 06/05/17941 Imaging Last 24 hours Impressions Ankle X-Ray 06/05/17 0000 Signed Impressions: Service Date/Time: Monday, June 05, 2017 00:09 - CONCLUSION: Postsurgical changes as above. Darwin Quiroz MD Procedures Irrigation and debridement with open reduction internal fixation left fibula 06/04/17 Objective Remarks The left lower extremity splint and dressing were dry and intact. He moves his toes freely and has good capillary refill and sensation. Assessment & Plan Ortho Post Op Day #: 1 Problem List: (1) Open fracture dislocation of ankle ICD Codes: S82.899B - Other fracture of unspecified lower leg, initial encounter for open fracture type I or II (2) Hyperlipidemia ICD Codes: E78.5 - Hyperlipidemia, unspecified (3) Hypertension ICD Codes: I10 - Essential (primary) hypertension (4) Type 1 diabetes mellitus ICD Codes: E10.9 - Type 1 diabetes mellitus without complications Assessment and Plan The patient's orthopedic status is stable postoperative day #1. Physical therapy for gait training nonweightbearing left lower extremity. Xarelto for DVT prophylaxis. Case management for discharge planning. Anticipate discharge in 1-2 days with follow-up in 1 week. Dayton Gibson MD Jun 05, 2017 12:38
--- NOTE | 2017-06-05 14:28 | MG ---
cc: NATALIE NOVAK M.D. Lab No: [id number] Date: 06/05/2017 : 1960 Sex: M TECHNIQUE 17-channel EEG. DESCRIPTION The background rhythm reveals symmetrical alpha rhythm. Frequency is around 9 Hz, amplitude about 30 microvolts. There is the expected anterior decremental response. There are no lateralizing features identified and there are no epileptiform features. Hyperventilation does not alter the background rhythm. Photic stimulation results in a normal driving response. INTERPRETATION This is a normal EEG. MD JONO Lopez/THANG /1:57 PM /2:19 PM
[2017-06-05] MEDS: INSULIN DETEMIR 100 UNITS/ML VIAL SQ SCH (19:51)
[2017-06-06 00:53] VITALS: BP 157/74; PULSE 99; RESP 22; TEMP 99.2; O2SAT 94
[2017-06-06] MEDS: LACTATED RINGER'S 1000 ML INJ 1,000 ML IV SCH (01:36)
[2017-06-06] MEDS: PCA - TOTAL MG MORPHINE DELIVERED PER SHIFT SCH ×4 (05:17→22:09)
[2017-06-06 07:39] LABS: AUTOMATED NEUTROPHIL # 7.1 TH/MM3 (1.8-7.7); BASOPHIL # 0.1 TH/MM3 (0-0.2); BASOPHIL % 0.6 % (0.0-2.0); EOSINOPHIL # 0.2 TH/MM3 (0-0.4); EOSINOPHIL % 2.1 % (0.0-4.0); HEMATOCRIT 34.8 % (39.0-51.0); HEMO FLAGS DIFF FINAL; LYMPH % 15.4 % (9.0-44.0); LYMPHOCYTE # 1.6 TH/MM3 (1.0-4.8); MEAN CORPUSCULAR HEMOGLOBIN 30.3 PG (27.0-34.0); MEAN CORPUSCULAR HGB CONC 32.9 % (32.0-36.0); MONO % 12.8 % (0.0-8.0); NEUT % 69.1 % (16.0-70.0); PLATELET COUNT 159 TH/MM3 (150-450); RED BLOOD COUNT 3.78 MIL/MM3 (4.50-5.90); WHITE BLOOD COUNT 10.2 TH/MM3 (4.0-11.0)
[2017-06-06 07:58] LABS: BICARBONATE 26.8 MEQ/L (21.0-32.0); POTASSIUM 3.8 MEQ/L (3.5-5.1)
[2017-06-06 08:00] VITALS: BP 159/75; PULSE 97; RESP 18; TEMP 100.8; O2SAT 94
[2017-06-06] MEDS: INSULIN ASPART SUPPLEMENTAL SCALE SQ SCH ×4 (08:00→19:50)
[2017-06-06] MEDS: DOCUSATE SODIUM 50 MG/SENNA 8.6 MG TAB PO SCH ×2 (08:01→19:49)
[2017-06-06] MEDS: ATORVASTATIN 10 MG TAB PO SCH (08:01)
[2017-06-06] MEDS: oxyCODONE/ACETAMINOPHEN 5 MG/325 MG TAB PO PRN ×2 (08:01→19:49)
[2017-06-06] MEDS: HYDROCHLOROTHIAZIDE 12.5 MG CAP PO SCH (08:01)
[2017-06-06] MEDS: SODIUM CHLORIDE 0.9% FLUSH 10 ML FLUSH IV FLUSH SCH ×2 (08:02→19:50)
--- NOTE | 2017-06-06 10:03 | PD.ORT.PN ---
Subjective Subjective Remarks Patient comfortable. Pain controlled. OOB sitting in recliner. Family at bedside. Objective Vitals Vital Signs Date Time Temp Pulse Resp B/P (MAP) Pulse Ox O2 Delivery O2 Flow Rate FiO2 06/06/17 00:53 99.2 99 22 157/74 (101) 94 06/06/17 00:35 Room Air 06/05/17 23:02 18 06/05/17 22:30 95 Nasal Cannula 2.00 06/05/17 20:11 98.5 92 18 143/70 (94) 95 06/05/17 19:26 18 06/05/17 14:50 97.6 91 18 151/72 (98) 96 06/05/17 12:00 100.0 98 20 155/82 (106) 100 I/O 06/05/17 06/05/17 06/05/17 06/06/17 06/06/17 06/06/17 07:00 15:00 23:00 07:00 15:00 23:00 Intake Total 1480 ml 720 ml Output Total 550 ml 250 ml 400 ml 200 ml Balance 930 ml 720 ml -250 ml -400 ml -200 ml Intake Oral 480 ml 720 ml IV Total 1000 ml Output Urine Total 500 ml 250 ml 400 ml 200 ml Estimated Blood Loss 50 ml # Voids 4 # Bowel Movements 0 0 0 Result Diagram: 06/06/17 0630 06/06/17 0630 Imaging Last 24 hours Impressions Ankle X-Ray 06/05/17 0000 Signed Impressions: Service Date/Time: Monday, June 05, 2017 00:09 - CONCLUSION: Postsurgical changes as above. Darwin Quiroz MD Procedures Irrigation and debridement with open reduction internal fixation left fibula 06/04/17 Objective Remarks The left lower extremity splint and dressing were dry and intact. He moves his toes freely and has good capillary refill and sensation. Assessment & Plan Problem List: (1) Open fracture dislocation of ankle ICD Codes: S82.899B - Other fracture of unspecified lower leg, initial encounter for open fracture type I or II (2) Hyperlipidemia ICD Codes: E78.5 - Hyperlipidemia, unspecified (3) Hypertension ICD Codes: I10 - Essential (primary) hypertension (4) Type 1 diabetes mellitus ICD Codes: E10.9 - Type 1 diabetes mellitus without complications Assessment and Plan Postoperative day #2. Physical therapy for gait training nonweightbearing left lower extremity. Pain management Xarelto for DVT prophylaxis. Orthopedically stable for discharge. Will need medical clearance. D/C planning: anticipating home Follow-up in [address] Gibson in office. Rodolfo Wetzel Jun 06, 2017 10:03
--- NOTE | 2017-06-06 10:03 | HHI.PR ---
Subjective Remarks Follow up diabetes, left ankle fracture. Patient denies headache, dizziness, lightheadedness, vision changes, chest pain, dyspnea. Left leg pain is improving. Objective Vitals Vital Signs Date Time Temp Pulse Resp B/P (MAP) Pulse Ox O2 Delivery O2 Flow Rate FiO2 06/06/17 00:53 99.2 99 22 157/74 (101) 94 06/06/17 00:35 Room Air 06/05/17 23:02 18 06/05/17 22:30 95 Nasal Cannula 2.00 06/05/17 20:11 98.5 92 18 143/70 (94) 95 06/05/17 19:26 18 06/05/17 14:50 97.6 91 18 151/72 (98) 96 06/05/17 12:00 100.0 98 20 155/82 (106) 100 I/O 06/05/17 06/05/17 06/05/17 06/06/17 06/06/17 06/06/17 07:00 15:00 23:00 07:00 15:00 23:00 Intake Total 1480 ml 720 ml Output Total 550 ml 250 ml 400 ml 200 ml Balance 930 ml 720 ml -250 ml -400 ml -200 ml Intake Oral 480 ml 720 ml IV Total 1000 ml Output Urine Total 500 ml 250 ml 400 ml 200 ml Estimated Blood Loss 50 ml # Voids 4 # Bowel Movements 0 0 0 Result Diagram: 06/06/17 0630 06/06/17 0630 Imaging Last Impressions Ankle X-Ray 06/05/17 0000 Signed Impressions: Service Date/Time: Monday, June 05, 2017 00:09 - CONCLUSION: Postsurgical changes as above. Darwin Quiroz MD Head CT 06/04/17848 Signed Impressions: Service Date/Time: May 10:56 - CONCLUSION: 1. No evidence of acute intracranial process, hemorrhage, mass or edema. 2. Mucosal thickening with partial opacification in the left sphenoid sinus. Giuseppe Vargas MD Chest X-Ray 06/04/17848 Signed Impressions: Service Date/Time: May 09:14 - CONCLUSION: No acute cardiopulmonary abnormality is identified. Robin Baptiste MD Objective Remarks General: Obese male in no acute distress. Heart: Regular rate and rhythm. No murmur. Lungs: Clear to auscultation bilaterally. No wheezes, rales, or rhonchi. Breathing is nonlabored. Abdomen: Soft, nontender, nondistended. Extremities: No lower extremity edema. Left ankle in a splint. Psych: Alert and oriented. Procedures 06/04/17 ORIF left ankle fracture Urinary Catheter: No Vascular Central Line Catheter: No A/P Problem List: (1) Open left ankle fracture ICD Code: S82.892B - Other fracture of left lower leg, initial encounter for open fracture type I or II Status: Acute (2) Hypertension ICD Code: I10 - Essential (primary) hypertension (3) Hyperlipidemia ICD Code: E78.5 - Hyperlipidemia, unspecified (4) Type 1 diabetes mellitus ICD Code: E10.9 - Type 1 diabetes mellitus without complications Assessment and Plan 1. Open fracture of the left ankle: Status post ORIF. Appreciate with peak surgery management. Continue pain control, bowel regimen. Nonweightbearing left lower extremity. 2. Type 1 diabetes mellitus: Monitor Accu-Cheks and cover with sliding scale insulin. Increased to medium sliding scale. Continue Lantus. Diabetic diet. 3. Hypertension: Continue HCTZ, amlodipine. Resume lisinopril. 4. Hyperlipidemia: Continue statin. 5. DVT prophylaxis: Xarelto. 6. Fall: Uncertain why the patient fell. He does not recall what happened and only remembers looking down at his fractured ankle. EEG is negative. Echocardiogram ordered. Placed on telemetry monitoring. Patient has no cardiac or neurologic symptoms. Discharge Planning Possible discharge home tomorrow. Ian Garcia MD Jun 06, 2017 10:03
[2017-06-06 12:00] VITALS: BP 156/66; PULSE 88; RESP 18; O2SAT 94
[2017-06-06] MEDS: RIVAROXABAN 10 MG TAB PO SCH (12:28)
[2017-06-06] MEDS: LISINOPRIL 20 MG TAB PO SCH (12:29)
[2017-06-06 16:00] VITALS: BP 142/57; PULSE 91; RESP 18; TEMP 99.6; O2SAT 93
[2017-06-06 19:48] VITALS: PULSE 91
[2017-06-06] MEDS: INSULIN DETEMIR 100 UNITS/ML VIAL SQ SCH (19:50)
[2017-06-06 20:44] VITALS: BP 137/49; PULSE 94; RESP 17; TEMP 99.7; O2SAT 94
[2017-06-07] VITALS (8 sets, daily range): BP systolic 104–146; BP diastolic 52–64; PULSE 80–97; RESP 16–18; TEMP 97.8–99.4; O2SAT 94–97
[2017-06-07] MEDS: INSULIN ASPART SUPPLEMENTAL SCALE SQ SCH ×4 (08:00→20:16)
[2017-06-07] MEDS: HYDROCHLOROTHIAZIDE 12.5 MG CAP PO SCH (08:06)
[2017-06-07] MEDS: DOCUSATE SODIUM 50 MG/SENNA 8.6 MG TAB PO SCH ×2 (08:07→20:15)
[2017-06-07] MEDS: ATORVASTATIN 10 MG TAB PO SCH (08:07)
[2017-06-07] MEDS: LISINOPRIL 20 MG TAB PO SCH (08:07)
[2017-06-07] MEDS: oxyCODONE/ACETAMINOPHEN 5 MG/325 MG TAB PO PRN ×2 (08:09→20:15)
[2017-06-07] MEDS: SODIUM CHLORIDE 0.9% FLUSH 10 ML FLUSH IV FLUSH SCH ×2 (08:37→20:16)
[2017-06-07] MEDS ORDERED: WALKER WHEELS/F1 MIS (09:23)
--- NOTE | 2017-06-07 09:24 | PD.ORT.PN ---
Subjective Subjective Remarks Patient comfortable. Pain controlled. Objective Vitals Vital Signs Date Time Temp Pulse Resp B/P (MAP) Pulse Ox O2 Delivery O2 Flow Rate FiO2 06/07/17 08:00 98.8 89 17 117/57 (77) 97 06/07/17 04:21 99.4 80 17 146/64 (91) 97 06/07/17 00:30 98.8 81 17 133/61 (85) 95 06/06/17 20:44 99.7 94 17 137/49 (78) 94 06/06/17 19:48 91 06/06/17 16:00 99.6 91 18 142/57 (85) 93 06/06/17 12:00 88 18 156/66 (96) 94 I/O 06/06/17 06/06/17 06/06/17 06/07/17 06/07/17 06/07/17 06:59 14:59 22:59 06:59 14:59 22:59 Intake Total 960 ml 480 ml Output Total 400 ml 200 ml 700 ml 675 ml Balance -400 ml -200 ml 260 ml -195 ml Intake Oral 960 ml 480 ml Output Urine Total 400 ml 200 ml 700 ml 675 ml # Voids 1 # Bowel Movements 0 0 Result Diagram: 06/06/17 0630 06/06/17 0630 Imaging Last 24 hours Impressions Ankle X-Ray 06/05/17 0000 Signed Impressions: Service Date/Time: Monday, June 05, 2017 00:09 - CONCLUSION: Postsurgical changes as above. Darwin Quiroz MD Procedures Irrigation and debridement with open reduction internal fixation left fibula 06/04/17 Objective Remarks The left lower extremity splint and dressing were dry and intact. He moves his toes freely and has good capillary refill and sensation. Assessment & Plan Problem List: (1) Open fracture dislocation of ankle ICD Codes: S82.899B - Other fracture of unspecified lower leg, initial encounter for open fracture type I or II Qualifiers: Qualified Codes: S82.892B - Other fracture of left lower leg, initial encounter for open fracture type I or II (2) Hyperlipidemia ICD Codes: E78.5 - Hyperlipidemia, unspecified (3) Hypertension ICD Codes: I10 - Essential (primary) hypertension (4) Type 1 diabetes mellitus ICD Codes: E10.9 - Type 1 diabetes mellitus without complications Assessment and Plan Postoperative day #3. Physical therapy for gait training nonweightbearing left lower extremity. Pain management Xarelto for DVT prophylaxis. Orthopedically stable for discharge. Will need medical clearance. D/C planning: anticipating home Follow-up in [address] Gibson in office. Rodolfo Wetzel Jun 07, 2017 09:24
[2017-06-07] MEDS: RIVAROXABAN 10 MG TAB PO SCH (12:11)
[2017-06-07] MEDS: PCA - TOTAL MG MORPHINE DELIVERED PER SHIFT SCH ×2 (12:13→22:00)
--- NOTE | 2017-06-07 13:28 | HHI.PR ---
Subjective Remarks Follow up fall, ankle fracture. Patient is able to get around with a walker. He remains nonweightbearing to the left lower extremity. He denies chest pain, dyspnea, headache, blurred vision, lightheadedness, dizziness. Objective Vitals Vital Signs Date Time Temp Pulse Resp B/P (MAP) Pulse Ox O2 Delivery O2 Flow Rate FiO2 06/07/17 12:00 97 Nasal Cannula 2.00 06/07/17 08:00 98.8 89 17 117/57 (77) 97 06/07/17 04:21 99.4 80 17 146/64 (91) 97 06/07/17 00:30 98.8 81 17 133/61 (85) 95 06/06/17 20:44 99.7 94 17 137/49 (78) 94 06/06/17 19:48 91 06/06/17 16:00 99.6 91 18 142/57 (85) 93 I/O 06/06/17 06/06/17 06/06/17 06/07/17 06/07/17 06/07/17 07:00 15:00 23:00 07:00 15:00 23:00 Intake Total 960 ml 480 ml Output Total 400 ml 200 ml 700 ml 675 ml Balance -400 ml -200 ml 260 ml -195 ml Intake Oral 960 ml 480 ml Output Urine Total 400 ml 200 ml 700 ml 675 ml # Voids 1 # Bowel Movements 0 0 Result Diagram: 06/06/17 0630 06/06/17 0630 Imaging Last Impressions Ankle X-Ray 06/05/17 0000 Signed Impressions: Service Date/Time: Monday, June 05, 2017 00:09 - CONCLUSION: Postsurgical changes as above. Darwin Quiroz MD Head CT 06/04/17 0849 Signed Impressions: Service Date/Time: May 10:56 - CONCLUSION: 1. No evidence of acute intracranial process, hemorrhage, mass or edema. 2. Mucosal thickening with partial opacification in the left sphenoid sinus. Giuseppe Vargas MD Chest X-Ray 06/04/17 0849 Signed Impressions: Service Date/Time: May 09:14 - CONCLUSION: No acute cardiopulmonary abnormality is identified. Robin Baptiste MD Objective Remarks General: Obese male in no acute distress. Heart: Tachycardic. No murmur. Lungs: Clear to auscultation bilaterally. No wheezes, rales, or rhonchi. Breathing is nonlabored. Abdomen: Soft, nontender, nondistended. Extremities: No lower extremity edema. Left ankle in a splint. Psych: Alert and oriented. Procedures 06/04/17 ORIF left ankle fracture Urinary Catheter: No Vascular Central Line Catheter: No A/P Problem List: (1) Open left ankle fracture ICD Code: S82.892B - Other fracture of left lower leg, initial encounter for open fracture type I or II Status: Acute (2) Hypertension ICD Code: I10 - Essential (primary) hypertension (3) Hyperlipidemia ICD Code: E78.5 - Hyperlipidemia, unspecified (4) Type 1 diabetes mellitus ICD Code: E10.9 - Type 1 diabetes mellitus without complications Assessment and Plan 1. Open fracture of the left ankle: Status post ORIF. Appreciate with [facility] management. Continue pain control, bowel regimen. Nonweightbearing left lower extremity. 2. Type 1 diabetes mellitus: Monitor Accu-Cheks and cover with sliding scale insulin. Increased to medium sliding scale. Continue Lantus. Diabetic diet. 3. Hypertension: Continue HCTZ, amlodipine, lisinopril. 4. Hyperlipidemia: Continue statin. 5. DVT prophylaxis: Xarelto. 6. Fall: Uncertain why the patient fell. He does not recall what happened and only remembers looking down at his fractured ankle. EEG is negative. Echocardiogram ordered. Cardiac telemetry shows episodes of tachycardia, but no other arrhythmia noted. Patient has no cardiac or neurologic symptoms. Discharge Planning Plan for discharge home later today or tomorrow pending results of echocardiogram. Ian Garcia MD Jun 07, 2017 13:28
[2017-06-07] MEDS: INSULIN DETEMIR 100 UNITS/ML VIAL SQ SCH (20:16)
[2017-06-08 00:20] VITALS: BP 110/54; PULSE 82; RESP 16; TEMP 99.4; O2SAT 96
[2017-06-08 04:35] VITALS: BP 137/65; PULSE 85; RESP 16; TEMP 97.7; O2SAT 95
[2017-06-08] MEDS: PCA - TOTAL MG MORPHINE DELIVERED PER SHIFT SCH ×2 (06:00→14:00)
[2017-06-08 07:40] VITALS: O2SAT 95
[2017-06-08 08:00] VITALS: BP 102/52; PULSE 105; RESP 18; TEMP 98.2; O2SAT 92
[2017-06-08] MEDS: INSULIN ASPART SUPPLEMENTAL SCALE SQ SCH ×2 (08:40→12:00)
[2017-06-08] MEDS: SODIUM CHLORIDE 0.9% FLUSH 10 ML FLUSH IV FLUSH SCH (08:51)
[2017-06-08] MEDS: LISINOPRIL 20 MG TAB PO SCH (08:51)
[2017-06-08] MEDS: ATORVASTATIN 10 MG TAB PO SCH (08:51)
[2017-06-08] MEDS: HYDROCHLOROTHIAZIDE 12.5 MG CAP PO SCH (08:51)
[2017-06-08] MEDS: DOCUSATE SODIUM 50 MG/SENNA 8.6 MG TAB PO SCH (08:55)
[2017-06-08] MEDS: RIVAROXABAN 10 MG TAB PO SCH (11:10)
[2017-06-08 11:55] VITALS: BP 113/55; PULSE 100; RESP 18; TEMP 97.8; O2SAT 96
--- NOTE | 2017-06-08 12:41 | ECHRPT ---
Indication: syncope CONCLUSIONS Normal left ventricular size. Wall thickness is measured at the upper limits of normal. The aortic root and proximal ascending aorta are not well visualized. The pulmonary valve is not well visualized. BP: 154 / 84 HR: Rhythm: MEASUREMENTS (Male / Female) Normal Values Technical Quality:Good 2D ECHO LV Diastolic Diameter PLAX 4.7 cm 4.2 - 5.9 / 3.9 - 5.3 cm LV Systolic Diameter PLAX 3.4 cm IVS Diastolic Thickness 1.4 cm 0.6 - 1.0 / 0.6 - 0.9 cm LVPW Diastolic Thickness 1.4 cm 0.6 - 1.0 / 0.6 - 0.9 cm LV Relative Wall Thickness 0.6 RV Internal Dim ED PLAX 2.8 cm M-MODE Aortic Root Diameter MM 3.3 cm LA Systolic Diameter MM 4.1 cm LA Ao Ratio MM 1.2 AV Cusp Separation MM 1.6 cm DOPPLER Mitral E Point Velocity 110.0 cm/s Mitral A Point Velocity 96.4 cm/s Mitral E to A Ratio 1.1 LV E' Lateral Velocity 10.0 cm/s Mitral E to LV E' Lateral Ratio 11.0 FINDINGS LEFT VENTRICLE Normal left ventricular size. The left ventricular systolic function is normal with an estimated ejection fraction in the range of 60-65%. Wall thickness is measured at the upper limits of normal. RIGHT VENTRICLE Normal right ventricular size and systolic function. LEFT ATRIUM The left atrial size is normal. RIGHT ATRIUM The right atrial size is normal. ATRIAL SEPTUM Normal atrial septal thickness without atrial level shunting by limited color doppler interrogation. AORTA The aortic root and proximal ascending aorta are not well visualized. MITRAL VALVE Structurally normal mitral valve. No mitral valve stenosis or regurgitation. AORTIC VALVE Trileaflet aortic valve. No aortic valve stenosis or regurgitation. TRICUSPID VALVE Structurally normal tricuspid valve. No tricuspid valve stenosis or regurgitation. PULMONARY VALVE The pulmonary valve is not well visualized. VESSELS The inferior vena cava is normal in size. PERICARDIUM No pericardial effusion. Shyanne Esparza MD, FACC (Electronically Signed) Final Date:08 June 2017 12:40
--- NOTE | 2017-06-08 14:22 | HHI.DCPOC ---
Discharge Care Plan Diagnosis: (1) Open fracture dislocation of ankle (2) Type 1 diabetes mellitus (3) Hypertension (4) Hyperlipidemia Goals to Promote Your Health * To prevent worsening of your condition and complications * To maintain your health at the optimal level Directions to Meet Your Goals Take your medications as prescribed Follow your dietary instruction Follow activity as directed Keep your appointments as scheduled Take your immunizations and boosters as scheduled If your symptoms worsen call your PCP, if no PCP go to Urgent Care Center or Emergency Room Smoking is Dangerous to Your Health. Avoid second hand smoke Call the 24-hour hour crisis hotline for domestic abuse at Ian Garcia MD Jun 08, 2017 14:22
--- NOTE | 2017-06-08 14:25 | HHI.DS ---
Discharge Summary Admission Date Jun 04, 2017 at 11:59 Discharge Date: Jun 08, 2017 Admitting Diagnosis syncope/open ankle fracture (1) Open left ankle fracture ICD Code: S82.892B - Other fracture of left lower leg, initial encounter for open fracture type I or II Status: Acute (2) Hypertension ICD Code: I10 - Essential (primary) hypertension (3) Hyperlipidemia ICD Code: E78.5 - Hyperlipidemia, unspecified (4) Type 1 diabetes mellitus ICD Code: E10.9 - Type 1 diabetes mellitus without complications Procedures 06/04/17 ORIF left ankle fracture Brief History - From Admission The patient is a 57-year-old male who presented to the emergency department via ambulance with an open left ankle fracture. He states that he woke up this morning on the floor and noticed his ankle was injured. He does not remember falling. He last remembers going to bed and states that he felt fine yesterday. His glucose control has been good recently. He does not feel that he was hypoglycemic last night. He denies history of seizures or syncope. He feels a bit nauseous and lightheaded at this time, but did not last night or this morning. No chest pain or dyspnea. CBC/BMP: 06/06/17 0630 06/06/17 0630 Significant Findings Laboratory Tests Test 06/06/17 06:30 Red Blood Count 3.78 MIL/MM3 (4.50-5.90) Hemoglobin 11.5 GM/DL (13.0-17.0) Hematocrit 34.8 % (39.0-51.0) Monocytes (%) (Auto) 12.8 % (0.0-8.0) Monocytes # (Auto) 1.3 TH/MM3 (0-0.9) Random Glucose 149 MG/DL (74-106) Calcium Level 8.1 MG/DL (8.5-10.1) Estimat Glomerular Filtration Rate 78 ML/MIN (>89) Imaging Last Impressions Ankle X-Ray 06/05/17 0000 Signed Impressions: Service Date/Time: Monday, June 05, 2017 00:09 - CONCLUSION: Postsurgical changes as above. Darwin Quiroz MD Head CT 06/04/1749 Signed Impressions: Service Date/Time: May 10:56 - CONCLUSION: 1. No evidence of acute intracranial process, hemorrhage, mass or edema. 2. Mucosal thickening with partial opacification in the left sphenoid sinus. Giuseppe Vargas MD Chest X-Ray 06/04/17848 Signed Impressions: Service Date/Time: May 09:14 - CONCLUSION: No acute cardiopulmonary abnormality is identified. Robin Baptiste MD PE at Discharge General: Obese male in no acute distress. Heart: Regular rate and rhythm. No murmur. Lungs: Clear to auscultation bilaterally. No wheezes, rales, or rhonchi. Breathing is nonlabored. Abdomen: Soft, nontender, nondistended. Extremities: No lower extremity edema. Left ankle in a splint. Psych: Alert and oriented. Pt update on day of discharge The patient has no complaints at this time. Left ankle pain is 1/10. No cough, dyspnea, chest pain, nausea, vomiting. No lightheadedness or dizziness. Hospital Course The patient was admitted for management of open fracture of the left ankle. Orthopedic surgery was consulted and performed ORIF. Workup of possible syncopal episode was negative including EEG, echocardiogram, cardiac telemetry monitoring, labs. The patient's glucose was monitored and he was covered with sliding scale insulin and continued on Levemir. He was cleared for discharge by orthopedic surgery. He had no further symptoms indicating possible syncope. He was felt to be stable for discharge home. Pt Condition on Discharge: Stable Discharge Disposition: Discharge Home Discharge Time: > 30 minutes Discharge Instructions DIET: Follow Instructions for: Diabetic Diet Activities you can perform: Non Weight Bearing Activities to Avoid: Lifting/Bending Follow up Referrals: Orthopedics - 3-5 Days [facility] with Elizabeth Vargas PCP Follow-up - 1 Week with Ashleigh Hernandez MD New Medications: Walker with Front Wheels (Walker with Front Wheels) 1 Mis Mis EA .ROUTE DIRECTED, #1 0 Refills Bariatric walker Oxycodone HCl/Acetaminophen (Oxycodone-Acetaminophen 5-325) 5 Mg-325 Mg Tablet 1 TAB PO Q4H PRN for PAIN LESS THAN 5 ON SCALE, #50 TAB 0 Refills Rivaroxaban (Xarelto) 10 Mg Tab 10 MG PO Q24H for Blood Clot Prevention, #14 TAB 0 Refills Continued Medications: Amlodipine/Atorvastatin (Amlodipine-Atorvast 5-10 mg) 5 Mg-10 Mg Tablet 10 Insulin Glargine Inj (Lantus Inj) 1,000 Unit/10 Ml Vial 50 UNITS SQ HS for Blood Sugar Management, VIAL 0 Refills Insulin Lispro (Humalog) 100 Unit/Ml Cartridge 30 SQ PCHS Lisinopril/Hydrochlorothiazide (Lisinopril-Hctz 20-12.5 mg Tab) 20 Mg-12.5 Mg Tablet Ian Garcia MD Jun 08, 2017 14:25
[2017-06-08] MEDS ORDERED: OXYC1TAB63 PO (14:31)
[2017-06-08] MEDS ORDERED: XARE10TA PO (14:31)
== END 2017-06-08 16:47 | disposition home or self-care (01) | DRG 494 ==
LOC: NEPE 08:32 → NEDA 11:59 → N06B 18:27
PROVIDERS: ADMIT Family Medicine; ATTEND Family Medicine
PROC: 0QSK04Z Reposition Left Fibula with Internal Fixation Device, Open Approach (ICD-10-PCS; principal; 2017-06-04 22:49)
DX: S82.62XB Displaced fracture of lateral malleolus of left fibula, initial encounter for open fracture type I or II (principal); I10 Essential (primary) hypertension; E10.9 Type 1 diabetes mellitus without complications; E78.5 Hyperlipidemia, unspecified; X58.XXXA Exposure to other specified factors, initial encounter; Y93.9 Activity, unspecified; Y92.9 Unspecified place or not applicable; Z79.4 Long term (current) use of insulin; R11.2 Nausea with vomiting, unspecified
CPT/HCPCS: 28435; 70450; 71010; 73600; 76000; 80048; 80053; 80307; 82550; 82552; 82948; 84484; 85025; 85610; 85730; 90471; 90714; 93005; 93306; 94150; 95819; 96361; 96365; 96375; 99152; C1713; J0131; J0330; J0690; J1170; J1580; J1815; J2270; J2405; J3010; J7030; J7120